=== PATIENT | female | born 1985 | race Caucasian/White ===

== ENCOUNTER 2022-06-20 12:27 | Emergency (ER) | payer MEDICAID, SELFPAY ==
[2022-06-20 12:41] VITALS: BP 110/70; PULSE 86; RESP 14; TEMP 36.8; O2SAT 100; BMI 23.6
--- NOTE | 2022-06-20 12:43 | XRR_ITS ---
PROCEDURE INFORMATION: Exam: XR Chest Exam date and time: 06/20/2022 12:57 PM Age: 36 years old Clinical indication: Right-sided and left-sided; Patient HX: PT C/O chest pain w/history of heart attack one year and 3 months ago ( maker). ; Additional info: Cp TECHNIQUE: Imaging protocol: Radiologic exam of the chest. Views: 1 view. COMPARISON: No relevant prior studies available. FINDINGS: Lungs: Unremarkable. No consolidation. Pleural spaces: Unremarkable. No pleural effusion. No pneumothorax. Heart/Mediastinum: Unremarkable. No cardiomegaly. Bones/joints: Unremarkable. XR/XR chest 1V portable [id number] IMPRESSION: No acute findings.
--- NOTE | 2022-06-20 12:49 | ED_ITS ---
HPI - Chest Pain General: Chief Complaint: Chest Pain Stated Complaint: cp/dizzy Time Seen by Provider: 06/20/22 12:40 History of Present Illness: Patient complains of some chest pain, feeling of dizziness, nausea. Her pain is currently lower epigastric region that radiates into her back and maybe her shoulder. Patient was here at the hospital with her because he is sick . She reports that a proximately a year ago she had similar symptoms and ended up needing a stent due to a blockage. Patient denies any fever. Associated symptoms: Reports nausea; Deny dyspnea, fever(s) or vomiting Review of Systems Const: Denies: fever(s) or chills Card: Reports: chest pain and lightheadedness Resp: Denies: dyspnea GI: Reports: nausea; Denies: vomiting : Denies: flank pain or difficulty voiding Musc: Reports: neck pain and back pain Skin/Breast: Denies: rash Neuro: Denies: headache(s) or numbness in extremities Psych: Denies: anxiety or depression Physical Exam Const: COMMON NORMALS: no acute distress, patient oriented x3 and no limitations Resp: COMMON NORMALS: normal respiratory effort, No retractions and No use of accessory muscles EFFORT & INSPECTION: Yes able to speak in complete sentences Cardio: COMMON NORMALS: regular rate and regular rhythm RATE: regular rate RHYTHM: regular rhythm GI: COMMON NORMALS: Soft to palpation and non-tender PALPATION: Yes Soft to palpation Extremity: COMMON NORMALS: full ROM and capillary refill normal Neuro: COMMON NORMALS: patient oriented x3, CN's II-XII intact bilaterally, moves all extremities, no focal motor deficits and no sensory deficits noted Psych: COMMON NORMALS: mental status grossly normal, Normal thought process present and normal affect THOUGHT PROCESS: Normal thought process present Course Vital Signs: Vital signs: Vital Signs Temperature 98.3 F 06/20/22 12:41 Pulse Rate 88 06/20/22 14:40 Respiratory Rate 19 H 06/20/22 14:40 Blood Pressure 109/66 06/20/22 14:30 Pulse Oximetry 100 06/20/22 14:30 Oxygen Delivery Me thod 06/20/22 14:30 MDM - Chest Pain Medical Decision Making Patient's diagnostic test were ordered analyzed and reviewed by me along with your radiology study was reviewed and read by me initially and then reviewed radiology reading for final interpretation. EKG was interpreted by me. From time patient checked and she was repeatedly asking for pain medication specifically Dilaudid by name. She reports that morphine and Toradol did not work for her patient's was also being seen at the same time. He was had an extensive work-up at his stay he was specifically asking for pain medication with a paper prescription in fact he refused to sign discharge papers since he was not provided a narcotic prescription. Patient is from [place] and was unhappy with their treatment in [place] as why they were here in our ER. I suspect patient was here for drug-seeking behavior and is very concerning for that type of activity. Patient did have a low potassium which we attempted to correct however she left AMA prior to correction. She was quite aware of how to sign an AMA form and I suspect that she has had multiple drug- seeking behavior visits. Patient had no signs of acute coronary syndrome at time of her leaving AMA. She was stable when she left AGAINST MEDICAL ADVICE. Lab Data 06/20/22 12:55 06/20/22 12:55 Radiology Impressions Chest X-Ray 06/20/22 12:43 IMPRESSION: No acute findings. Laboratory Results WBC 9.2 10^3/uL (4.0-10.0) 06/20/22 12:55 RBC 4.44 10^6/uL (4.1-5.3) 06/20/22 12:55 Hgb 12.9 g/dL (11.5-15.3) 06/20/22 12:55 Hct 39.6 % (37.0-47.0) 06/20/22 12:55 MCV 89.2 fl (81-99) 06/20/22 12:55 MCH 29.1 pg (28.0-34.0) 06/20/22 12:55 MCHC 32.6 g/dL (30.0-36.0) 06/20/22 12:55 RDW 14.0 % (12.1-15.1) 06/20/22 12:55 Plt Count 242 10^3/cmm (130-400) 06/20/22 12:55 MPV 10.6 fL (7.4-10.4) H 06/20/22 12:55 Neut % (Auto) 56.1 % 06/20/22 12:55 Lymph % (Auto) 32.1 % 06/20/22 12:55 [place] % (Auto) 8.0 % 06/20/22 12:55 Eos % (Auto) 3.4 % 06/20/22 12:55 Baso % (Auto) 0.2 % 06/20/22 12:55 Neut # (Auto) 5.15 10^3/uL (1.8-7.7) 06/20/22 12:55 Lymph # (Auto) 3.0 10^3/uL (0.8-4.8) 06/20/22 12:55 [place] # (Auto) 0.7 10^3/uL (0.2-0.9) 06/20/22 12:55 Eos # (Auto) 0.3 10^3/uL (0.0-0.8) 06/20/22 12:55 Baso # (Auto) 0.0 10^3/uL (0.0-0.1) 06/20/22 12:55 Nucleated RBC % (auto) 0 % 06/20/22 12:55 Nucleated RBCs # 0.0 /100WBC 06/20/22 12:55 Sodium 135 mmol/L (136-145) L 06/20/22 12:55 Potassium 2.9 mmol/L (3.5-5.1) L 06/20/22 12:55 Chloride 92 mmol/L (98-107) L 06/20/22 12:55 Carbon Dioxide 33 mmol/L (22-29) H 06/20/22 12:55 Anion Gap 12.9 (5-19) 06/20/22 12:55 BUN 9 mg/dL (6-20) 06/20/22 12:55 Creatinine 0.5 mg/dL (0.5-0.9) 06/20/22 12:55 GFR Calculation 139.6 mL/min (90-130) H 06/20/22 12:55 Glucose 93 mg/dL (65-115) 06/20/22 12:55 Calculated Osmolality 278 mOsm/kg (285-295) L 06/20/22 12:55 Calcium 8.8 mg/dL (8.5-10.5) 06/20/22 12:55 Total Bilirubin 0.5 mg/dL (0.15-1.2) 06/20/22 12:55 AST 12 U/L (0-32) 06/20/22 12:55 ALT 9 U/L (0-33) 06/20/22 12:55 Alkaline Phosphatase 115 U/L (35-105) H 06/20/22 12:55 Troponin T Baseline 6 ng/L (0-10) 06/20/22 12:55 NT-Pro-B Natriuret Pep 36 pg/mL (0-125) 06/20/22 12:55 Total Protein 6.4 g/dL (6.6-8.7) L 06/20/22 12:55 Albumin 4.1 g/dL (3.5-5.2) 06/20/22 12:55 Globulin 2.3 g/dL (1.3-4.6) 06/20/22 12:55 Lipase 19 U/L (13-60) 06/20/22 12:55 EKG Data EKG 1: I personally reviewed and interpreted this EKG as follows: EKG interpretation date: 06/20/22 EKG interpretation time: 12:53 Interpretation: Heart rate 79, sinus rhythm. Questionable incomplete bundle branch block. No acute ST changes or elevation noted Discharge Plan Discharge Patient Disposition: Left Against Medical Advice Clinical Impression: Chest pain, Drug-seeking behavior Condition: Stable Prescriptions: No Action verapamil 120 mg tablet extended release 120 mg PO DAILY furosemide 40 mg tablet 40 mg PO DAILY atorvastatin 80 mg tablet 80 mg PO DAILY alprazolam 1 mg tablet 1 mg PO TID PRN (Reason: Anxiety) quetiapine 100 mg tablet 100 mg PO BEDTIME trazodone 100 mg tablet 100 mg PO BEDTIME indomethacin 50 mg capsule 50 mg PO TID PRN (Reason: Pain) gabapentin 300 mg capsule 300 mg PO BID omeprazole 20 mg capsule,delayed release(DR/EC) 20 mg PO DAILY aripiprazole 5 mg tablet 5 mg PO DAILY bupropion HCl 150 mg tablet extended release 24 hr 150 mg PO DAILY quetiapine 50 mg tablet 50 mg PO DAILY prasugrel 10 mg tablet 10 mg PO DAILY aspirin 81 mg Tablet,Chewable 81 mg PO DAILY Discharge Diet: Usual diet Discharge Activity: Resume usual activity Coding Level of Care Code ED Mitochondrial Disorders Counselor for Unruly Maurice
--- NOTE | 2022-06-20 12:52 | ECG_ITS ---
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 Measurements Intervals [place] Rate: 79 P: 45 [place]: 172 QRS: 60 QRSD: 118 T: 31 QT: 421 QTc: 483 Interpretive Statements SINUS RHYTHM POSSIBLE LEFT ATRIAL ENLARGEMENT [-0.1mV P-WAVE IN V1/V2] INCOMPLETE RIGHT BUNDLE BRANCH BLOCK [90+ ms QRS DURATION, TERMINAL R IN V1/V2, 40+ ms S IN I/aVL/V4/V5/V6] NONSPECIFIC T-WAVE ABNORMALITY No previous ECG available for comparison Electronically Signed On 06-20-2022 15:15:44 BOX ANNEALER by Juan Burk M.D. [email or web address] medical [email or web address] ITacmc healthcare system glenbeigh.[employer]/store/OM/[id number]
[2022-06-20 13:09] LABS: Basophils % 0.2 %; Eosinophils # 0.3 10^3/uL (0.0-0.8); Eosinophils % 3.4 %; Hematocrit 39.6 % (37.0-47.0); Hemoglobin 12.9 g/dL (11.5-15.3); Lymphocytes % 32.1 %; Mean Corpuscular HGB Conc 32.6 g/dL (30.0-36.0); Mean Corpuscular Hemoglobin 29.1 pg (28.0-34.0); Mean Corpuscular Volume 89.2 fl (81-99); Mean Platelet Volume 10.6 fL (7.4-10.4); Monocytes # 0.7 10^3/uL (0.2-0.9); Neutrophils # 5.15 10^3/uL (1.8-7.7); Neutrophils % 56.1 %; Nucleated Red Blood Cells % 0 %; Platelet Count 242 10^3/cmm (130-400); Red Blood Count 4.44 10^6/uL (4.1-5.3); White Blood Count 9.2 10^3/uL (4.0-10.0)
[2022-06-20 13:12] VITALS: RESP 18
[2022-06-20] MEDS: ondansetron 2 mg/ML SDV 2 mL 4 MG IVP (13:12)
[2022-06-20] MEDS: fentaNYL 50 mcg/mL INJ 2mL IVP (13:12)
[2022-06-20] MEDS: aspirin 81 mg Chew Tablet 324 MG PO (13:12)
[2022-06-20 13:44] LABS: Troponin(5th) Baseline 6 ng/L (0-10)
[2022-06-20 13:50] LABS: Alanine Aminotransferase 9 U/L (0-33); Albumin Level 4.1 g/dL (3.5-5.2); Alkaline Phosphatase 115 U/L (35-105); Anion Gap 12.9 (5-19); Aspartate Amino Transferase 12 U/L (0-32); Blood Urea Nitrogen 9 mg/dL (6-20); Calcium 8.8 mg/dL (8.5-10.5); Carbon Dioxide 33 mmol/L (22-29); Chloride 92 mmol/L (98-107); Globulin 2.3 g/dL (1.3-4.6); Glomerular Filtration Rate 139.6 mL/min (90-130); Glucose 93 mg/dL (65-115); Lipase 19 U/L (13-60); NT Pro B Type Natriuretic Pept 36 pg/mL (0-125); Osmolality Calculated 278 mOsm/kg (285-295); Sodium 135 mmol/L (136-145); Total Bilirubin 0.5 mg/dL (0.15-1.2); Total Protein 6.4 g/dL (6.6-8.7)
[2022-06-20 14:14] LABS: Potassium 2.9 mmol/L (3.5-5.1)
[2022-06-20 14:27] VITALS: BP 109/66; PULSE 68; RESP 16; O2SAT 98
[2022-06-20 14:30] VITALS: BP 109/66; PULSE 72; RESP 15; O2SAT 100
[2022-06-20 14:35] VITALS: PULSE 73; RESP 19
[2022-06-20 14:40] VITALS: PULSE 88; RESP 19
--- NOTE | 2022-06-20 14:52 | ECG_ITS ---
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 Measurements Intervals [place] Rate: 80 P: 45 [place]: 199 QRS: 57 QRSD: 122 T: 21 QT: 422 QTc: 487 Interpretive Statements SINUS RHYTHM POSSIBLE RIGHT VENTRICULAR CONDUCTION DELAY [RSR (QR) IN V1/V2] NONSPECIFIC T-WAVE ABNORMALITY Compared to ECG 06/20/2022 12:52:26 Incomplete right bundle-branch block no longer present T-wave abnormality still present Electronically Signed On 06-20-2022 15:17:17 HAND INSPECTOR by Juan Burk M.D. [email or web address] Holdingsummc holmes countyRisk I/[facility].[employer]/store/OM/[id number]
--- NOTE | 2022-06-20 15:22 | PC.NURSE ---
PT LABS CAME BACK WITH A CRITICALLY LOW POTASSIUM. NOTIFIED AND ORDERED IV AND PO POTASSIUM. WHILE WALKING TO PT ROOM TO GIVE THE MEDS, DANISHA PINK STATED THAT THE PT WAS REFUSING FURTHER TX AND WANTS TO LEAVE. WHEN TALKING TO PT AND DR AND EXPLAINING THE RISKS OF REFUSING TX, PT STILL WANTED TO LEAVE. AMA WAIVER SIGNED BY PT AND NURSE. PT STABLE UPON EXITING THE DEPARTMENT.
== END 2022-06-20 15:15 | disposition left against medical advice (07) ==
PROVIDERS: Emergency Provider Student in an Organized Health Care Education/Training Program
DX: R07.9 Chest pain, unspecified (principal); Z76.5 Malingerer [conscious simulation]; Z53.21 Procedure and treatment not carried out due to patient leaving prior to being seen by health care provider; Z79.82 Long term (current) use of aspirin
CPT/HCPCS: 71045; 80053; 83690; 83880; 84484; 85025; 93005; 96374; 96375; 99285; J2405; J3010

== ENCOUNTER 2022-07-12 16:28 | Observation (INO) | payer MEDICAID, SELFPAY ==
[2022-07-12] VITALS (10 sets, daily range): BP systolic 95–160; BP diastolic 62–75; PULSE 73–83; RESP 15–21; TEMP 36.6–37.1; O2SAT 93–100; BMI 25.0
--- NOTE | 2022-07-12 16:35 | ECG_ITS ---
[facility] Test Date: 2022-07-12 Pat Name: Alyssa Moran Department: Room: Gender: Female Abstract Checker: : 1985 Requested By: Bonnie Gunderson Order Number: [id number] Patricia MD: Rober Weber M.D. Measurements Intervals [place] Rate: 81 P: 61 [place]: 168 QRS: 61 QRSD: 116 T: 56 QT: 412 QTc: 480 Interpretive Statements SINUS RHYTHM INCOMPLETE RIGHT BUNDLE BRANCH BLOCK [90+ ms QRS DURATION, TERMINAL R IN V1/V2, 40+ ms S IN I/aVL/V4/V5/V6] NONSPECIFIC T-WAVE ABNORMALITY INTERPRETATION BASED ON A DEFAULT AGE OF 40 YEARS Compared to ECG 06/20/2022 14:52:36 Incomplete right bundle-branch block now present T-wave abnormality still present Electronically Signed On 07-13-2022 23:05:34 CDT by Rober Weber M.D. [email or web address] north hospital.Penana/store/NU/[id number]
--- NOTE | 2022-07-12 16:38 | XRR_ITS ---
PROCEDURE INFORMATION: Exam: XR Chest Exam date and time: 07/12/2022 4:49 PM Age: 36 years old Clinical indication: Pain; Angina pectoris; Additional info: Chest pain TECHNIQUE: Imaging protocol: Radiologic exam of the chest. Views: 1 view. COMPARISON: CR (CHEST, ) 06/20/2022 12:57 PM FINDINGS: Lungs: The lungs are clear. Pleural spaces: Unremarkable. No pleural effusion. No pneumothorax. Heart/Mediastinum: The heart is normal in size. Left coronary, possibly circumflex, calcifications are again noted. Bones/joints: Unremarkable. XR/XR chest 1V portable [id number] IMPRESSION: 1. No acute pulmonary abnormality. 2. Coronary artery disease.
--- NOTE | 2022-07-12 16:46 | ED_ITS ---
HPI - Chest Pain General: Chief Complaint: Chest Pain Stated Complaint: chest pain/down back Time Seen by Provider: 07/12/22 16:46 History of Present Illness: Ms. Moran is a 36-year-old lady with history of FL with stent placement presenting to the emergency department for chest pain. She reports since stent placement 1 year ago occasional chest pain however this has become more frequent and more intense lately. Today while shopping she had onset of severe chest heaviness with pain between her shoulder blades rating down the arms. She also notes shortness of breath and nausea. Intensity symptoms is moderate to severe. Course has persisted. She reports compliance with her medication regimen. No other specific changes in health, exacerbating, or alleviating factors identified. LAD stent placed in [place] Onset (ago): minute(s) Timing of current episode: constant Prior episodes: Yes Onset: during exertion Pain location: substernal Pain radiation: right arm, left arm and back Severity: moderate Quality: aching and heaviness Relieving factors: nitroglycerin Exacerbating factors: nothing Associated symptoms: Reports dyspnea and nausea Treatment prior to arrival: nitroglycerin Review of Systems General: Reports: 10 or more systems reviewed and unremarkable except in HPI and below Resp: Reports: dyspnea GI: Reports: nausea PFSH ED PFSH: Medical History CAD (coronary artery disease) Frequent PVCs Surgical History History of percutaneous coronary intervention Social History Smoking and tobacco status: current every day smoker Physical Exam Const: COMMON NORMALS: alert GENERAL APPEARANCE: cooperative and well developed HENMT: COMMON NORMALS: normocephalic and atraumatic HEAD & SCALP: normocephalic and atraumatic Eye: COMMON NORMALS: conjunctivae normal CONJUNCTIVA: Yes conjunctivae normal SCLERA: sclerae normal Neck/C-Spine: COMMON NORMALS: supple GENERAL: Yes trachea midline Resp: COMMON NORMALS: clear to auscultation bilaterally EFFORT & INSPECTION: Yes able to speak in complete sentences AUSCULTATION: clear to auscultation bilaterally Cardio: COMMON NORMALS: regular rate and regular rhythm RATE: regular rate RHYTHM: regular rhythm GI: COMMON NORMALS: Soft to palpation PALPATION: Yes Soft to palpation and No Tenderness to palpation present (GI) Extremity: GENERAL: Yes normal exam except as noted and No edema Neuro: COMMON NORMALS: moves all extremities SENSORIUM/ORIENTATION: Yes alert and No Orientation impaired Psych: COMMON NORMALS: mental status grossly normal and Normal thought process present THOUGHT PROCESS: Normal thought process present Course Vital Signs: Vital signs: Vital Signs Temperature 98.4 F 07/13/22 04:00 Pulse Rate 87 07/13/22 07:10 Respiratory Rate 16 07/13/22 07:10 Blood Pressure 89/57 07/13/22 07:10 Pulse Oximetry 97 07/13/22 07:10 Oxygen Delivery Me thod 07/13/22 07:10 MDM - Chest Pain Medical Decision Making 36-year-old lady with history of FL presenting to the emergency department due to chest pain. Pain is fairly typical in nature and concerning for cardiac e tiology. Exam as above. Patient is nontoxic. EKG notable for sinus rhythm with normal axis and intervals, incomplete right bundle branch block, nonspecific ST segment abnormalities, no STEMI. No significant hematologic abnormality, metabolic panel with hypokalemia. Negative initial and repeat troponin. No UTI Chest x-ray negative for acute pathology. On reassessment patient has significant pain despite continued treatment, therefore advanced imaging is appropriate. CT without clear etiology of patient's symptoms. During ED course patient treated with aspirin, antiemetic, analgesia, potassium replenishment, IV fluids. She had moderate transient relief though return of symptoms concerning for unstable angina. The results of ED evaluation were discussed with the patient including plan for admission due to requirement for level of care not available if discharged to prevent significant worsening/deterioration. Patient agreeable with plan. Discussed with hospitalist service who was agreeable to admit patient. Medical Records I reviewed the patient's medical records. Lab Data I reviewed the patient's lab results. 07/12/22 17:15 07/12/22 17:15 Radiology Impressions Chest X-Ray 07/12/22 16:38 IMPRESSION: 1. No acute pulmonary abnormality. 2. Coronary artery disease. Chest/Abdomen/Pelvis CTA 07/12/22 21:15 IMPRESSION: 1. Mild atherosclerotic changes in the thoracic and abdominal aorta. No intramural hematoma, dissection or aneurysm. 2. Constipation. 3. No acute cardiopulmonary abnormality. Laboratory Results WBC 9.1 10^3/uL (4.0-10.0) 07/12/22 17:15 RBC 4.67 10^6/uL (4.1-5.3) 07/12/22 17:15 Hgb 13.7 g/dL (11.5-15.3) 07/12/22 17:15 Hct 42.6 % (37.0-47.0) 07/12/22 17:15 MCV 91.2 fl (81-99) 07/12/22 17:15 MCH 29.3 pg (28.0-34.0) 07/12/22 17:15 MCHC 32.2 g/dL (30.0-36.0) 07/12/22 17:15 RDW 13.7 % (12.1-15.1) 07/12/22 17:15 Plt Count 229 10^3/cmm (130-400) 07/12/22 17:15 MPV 10.7 fL (7.4-10.4) H 07/12/22 17:15 Neut % (Auto) 58.4 % 07/12/22 17:15 Lymph % (Auto) 33.9 % 07/12/22 17:15 [place] % (Auto) 4.9 % 07/12/22 17:15 Eos % (Auto) 2.2 % 07/12/22 17:15 Baso % (Auto) 0.4 % 07/12/22 17:15 Neut # (Auto) 5.28 10^3/uL (1.8-7.7) 07/12/22 17:15 Lymph # (Auto) 3.1 10^3/uL (0.8-4.8) 07/12/22 17:15 [place] # (Auto) 0.4 10^3/uL (0.2-0.9) 07/12/22 17:15 Eos # (Auto) 0.2 10^3/uL (0.0-0.8) 07/12/22 17:15 Baso # (Auto) 0.0 10^3/uL (0.0-0.1) 07/12/22 17:15 Nucleated RBC % (auto) 0 % 07/12/22 17:15 Nucleated RBCs # 0.0 /100WBC 07/12/22 17:15 D-Dimer 0.45 ug/mIFEU (0-0.59) 07/12/22 17:15 Sodium 139 mmol/L (136-145) 07/12/22 17:15 Potassium 3.0 mmol/L (3.5-5.1) L 07/12/22 17:15 Chloride 97 mmol/L (98-107) L 07/12/22 17:15 Carbon Dioxide 28 mmol/L (22-29) 07/12/22 17:15 Anion Gap 17.0 (5-19) 07/12/22 17:15 BUN 7 mg/dL (6-20) 07/12/22 17:15 Creatinine 0.7 mg/dL (0.5-0.9) 07/12/22 17:15 GFR Calculation 94.7 mL/min (90-130) 07/12/22 17:15 Glucose 83 mg/dL (65-115) 07/12/22 17:15 Calculated Osmolality 285 mOsm/kg (285-295) 07/12/22 17:15 Calcium 8.6 mg/dL (8.5-10.5) 07/12/22 17:15 Total Bilirubin 0.2 mg/dL (0.15-1.2) 07/12/22 17:15 AST 10 U/L (0-32) 07/12/22 17:15 ALT 8 U/L (0-33) 07/12/22 17:15 Alkaline Phosphatase 114 U/L (35-105) H 07/12/22 17:15 Troponin T Baseline 6 ng/L (0-10) 07/12/22 17:15 Troponin T 120 Minute 6.00 ng/L (0-10) 07/12/22 18:44 Delta Troponin T 0 ABS# (0-10) 07/12/22 18:44 Total Protein 8.0 g/dL (6.6-8.7) 07/12/22 17:15 Albumin 4.9 g/dL (3.5-5.2) 07/12/22 17:15 Globulin 3.1 g/dL (1.3-4.6) 07/12/22 17:15 Lipase 18 U/L (13-60) 07/12/22 16:38 HCG, Qual Cancelled 07/12/22 17:49 Urine Color Yellow (Yellow) 07/12/22 17:49 Urine Appearance Clear (CLEAR) 07/12/22 17:49 Urine pH 6 (5-7) 07/12/22 17:49 Ur Specific [place] 1.015 (1.005-1.030) 07/12/22 17:49 Urine Protein Neg (Negative) 07/12/22 17:49 Urine Glucose (UA) Norm (Normal) 07/12/22 17:49 Urine Ketones Negative (Negative) 07/12/22 17:49 Urine Blood Neg (Negative) 07/12/22 17:49 Urine Nitrate Negative (Negative) 07/12/22 17:49 Urine Bilirubin Neg (Negative) 07/12/22 17:49 Urine Urobilinogen 4 mg/dL (Negative) H 07/12/22 17:49 Ur Leukocyte Esterase Negative (Negative) 07/12/22 17:49 Urine Opiates Screen Negative ng/mL (Negative) 07/12/22 17:49 Ur Barbiturates Screen Negative ng/mL (Negative) 07/12/22 17:49 Ur Phencyclidine Scrn Negative ng/mL (Negative) 07/12/22 17:49 Ur Amphetamines Screen Negative ng/mL (Negative) 07/12/22 17:49 U Benzodiazepines Scrn Negative ng/mL (Negative) 07/12/22 17:49 Urine Cocaine Screen Negative ng/mL (Negative) 07/12/22 17:49 U Marijuana (THC) Screen Negative ng/mL (Negative) 07/12/22 17:49 Discharge Plan Discharge Patient Disposition: Placed in Observation Admit Provider: Greg Restrepo Clinical Impression: Chest pain, History of FL (myocardial infarction), History of coronary angioplasty Coding Level of Care Code ED Microbiology Lab Analyst for Unruly Maurice
[2022-07-12] MEDS: HYDROmorphone 1 mg/mL INJ 1 mL 0.5 MG IVP (17:29)
[2022-07-12] MEDS: ondansetron 2 mg/ML SDV 2 mL 4 MG IVP ×2 (17:30→19:10)
[2022-07-12] MEDS: aspirin 81 mg Chew Tablet 324 MG PO (17:30)
[2022-07-12 17:36] LABS: Basophils % 0.4 %; Eosinophils # 0.2 10^3/uL (0.0-0.8); Eosinophils % 2.2 %; Hematocrit 42.6 % (37.0-47.0); Hemoglobin 13.7 g/dL (11.5-15.3); Lymphocytes # 3.1 10^3/uL (0.8-4.8); Lymphocytes % 33.9 %; Mean Corpuscular HGB Conc 32.2 g/dL (30.0-36.0); Mean Corpuscular Hemoglobin 29.3 pg (28.0-34.0); Mean Corpuscular Volume 91.2 fl (81-99); Mean Platelet Volume 10.7 fL (7.4-10.4); Monocytes # 0.4 10^3/uL (0.2-0.9); Monocytes % 4.9 %; Neutrophils # 5.28 10^3/uL (1.8-7.7); Neutrophils % 58.4 %; Nucleated Red Blood Cells % 0 %; Platelet Count 229 10^3/cmm (130-400); Red Blood Count 4.67 10^6/uL (4.1-5.3); Red Cell Distribution Width 13.7 % (12.1-15.1); White Blood Count 9.1 10^3/uL (4.0-10.0)
[2022-07-12 17:51] LABS: Troponin(5th) Baseline 6 ng/L (0-10)
[2022-07-12 17:53] LABS: Alanine Aminotransferase 8 U/L (0-33); Albumin Level 4.9 g/dL (3.5-5.2); Alkaline Phosphatase 114 U/L (35-105); Aspartate Amino Transferase 10 U/L (0-32); Blood Urea Nitrogen 7 mg/dL (6-20); Calcium 8.6 mg/dL (8.5-10.5); Carbon Dioxide 28 mmol/L (22-29); Chloride 97 mmol/L (98-107); Globulin 3.1 g/dL (1.3-4.6); Glomerular Filtration Rate 94.7 mL/min (90-130); Glucose 83 mg/dL (65-115); Osmolality Calculated 285 mOsm/kg (285-295); Sodium 139 mmol/L (136-145); Total Bilirubin 0.2 mg/dL (0.15-1.2)
[2022-07-12 17:55] LABS: HCG, Serum Qual Negative (Negative)
[2022-07-12] MEDS: potassium chloride ER 20 mEq Tablet 40 MEQ PO (18:25)
[2022-07-12] MEDS: nitroglycerin 0.4 mg sublingual Tablet SUBLINGUAL ×2 (18:28→20:21)
[2022-07-12] MEDS: lidocaine 2% viscous 15 ML, aluminum-mag hydrox-simethicon 30 ML, sucralfate oral liq 1 GM PO (18:28)
[2022-07-12] MEDS: sodium chloride 0.9% 1,000 ML 999 ML IV (18:29)
--- NOTE | 2022-07-12 18:37 | ECG_ITS ---
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 Measurements Intervals [place] Rate: 73 P: 56 [place]: 180 QRS: 56 QRSD: 113 T: 34 QT: 434 QTc: 478 Interpretive Statements SINUS RHYTHM INCOMPLETE RIGHT BUNDLE BRANCH BLOCK [90+ ms QRS DURATION, TERMINAL R IN V1/V2, 40+ ms S IN I/aVL/V4/V5/V6] Compared to ECG 07/12/2022 16:35:55 T-wave abnormality no longer present Electronically Signed On 07-13-2022 23:13:42 CDT by Rober Weber M.D. [id number]
[2022-07-12] MEDS: fentaNYL 50 mcg/mL INJ 2mL IVP ×2 (19:10→20:17)
[2022-07-12 19:13] LABS: Add Urine Microscopic? NO; Charge for UA Resulting for Rev
[2022-07-12 19:18] LABS: Bilirubin Urine Neg (Negative); Blood Urine Neg (Negative); Glucose Urine UA Norm (Normal); Ketones Urine Negative (Negative); Leukocyte Esterase Urine Negative (Negative); Nitrate Urine Negative (Negative); Protein Urine Neg (Negative); Specific Gravity, Urine 1.015 (1.005-1.030); Urine Appearance Clear (CLEAR); Urine Color Yellow (Yellow); Urobilinogen Urine 4 mg/dL (Negative); pH Urine 6 (5-7)
[2022-07-12 19:23] LABS: Troponin 5 2HR Delta 0 ABS# (0-10)
[2022-07-12 19:35] LABS: D Dimer 0.45 ug/mIFEU (0-0.59)
[2022-07-12 19:46] LABS: Lipase 18 U/L (13-60)
[2022-07-12] MEDS: metoclopramide 5 mg/mL SDV 2 mL 10 MG IVP (20:13)
[2022-07-12] MEDS: promethazine 25 mg/mL SDV 1 mL IM (21:02)
[2022-07-12] MEDS: sodium chloride 0.9% 500 ML 999 ML IV (21:06)
--- NOTE | 2022-07-12 21:15 | CTR_ITS ---
PROCEDURE INFORMATION: Exam: CTA Chest Without And With Contrast CTA Abdomen and Pelvis With Contrast Exam date and time: 07/12/2022 9:25 PM Age: 36 years old Clinical indication: Other: Chest pain radiating to back; Prior surgery; Surgery date: 6+ months; Surgery type: C section, gb; Additional info: Chest pain/back pain, eval dissection TECHNIQUE: Imaging protocol: Computed tomographic angiography of the chest without and with contrast. Computed tomographic angiography of the abdomen and pelvis with contrast. 3D rendering (Not supervised by radiologist): MIP and/or 3D reconstructed images were created by the technologist. Radiation optimization: All CT scans at this facility use at least one of these dose optimization techniques: automated exposure control; mA and/or kV adjustment per patient size (includes targeted exams where dose is matched to clinical indication); or iterative reconstruction. Contrast material: OMNI 350; Contrast volume: 100 ml; Contrast route: INTRAVENOUS (IV); REPORTING DATA: Count of CT and Cardiac NM exams in prior 12 months: This patient has received 0 known CTs and 0 known cardiac nuclear medicine studies in the 12 months prior to the current study. COMPARISON: CR XR chest 1V portable [id number] 07/12/2022 4:49 PM RADIATION DOSE METRICS: Total DLP (mGy-cm): 1005.5 FINDINGS: VASCULATURE: Pulmonary arteries: Normal. No pulmonary emboli. Aorta: Mild noncalcified atherosclerotic plaque deposition is seen in the descending thoracic and abdominal aorta. No intramural hematoma, dissection or aneurysm. Celiac trunk and mesenteric arteries: No occlusion or significant stenosis. Renal arteries: Bilateral renal arteries appear normal. Bilateral accessory renal arteries are noted. Right iliac arteries: No occlusion or significant stenosis. Left iliac arteries: No occlusion or significant stenosis. CHEST: Lungs: Subsegmental atelectasis versus mild scarring is seen in the lingula and right middle lobe. The lungs are otherwise clear. Pleural spaces: Unremarkable. No pneumothorax. No pleural effusion. Heart: The heart is normal in size. LAD coronary artery stent is noted. ABDOMEN AND PELVIS: Liver: No mass. Gallbladder and bile ducts: The gallbladder has been removed. No biliary ductal dilatation. Pancreas: Unremarkable. No mass. No ductal dilation. Spleen: Unremarkable. No splenomegaly. Adrenal glands: Unremarkable. No mass. Kidneys and ureters: Unremarkable. No solid mass. No hydronephrosis. Stomach and bowel: A large amount of stool is present in the colon. No intestinal obstruction. Appendix: The appendix is normal. Intraperitoneal space: Unremarkable. No free air. No significant fluid collection. Urinary bladder: Unremarkable. No mass. Reproductive: The uterus and ovaries appear normal. Lymph nodes: Unremarkable. No enlarged lymph nodes. Bones/joints: Moderate to severe degenerative changes are present at L5-S1. No acute fracture. Soft tissues: Unremarkable. CT/CT [facility] [id number] IMPRESSION: 1. Mild atherosclerotic changes in the thoracic and abdominal aorta. No intramural hematoma, dissection or aneurysm. 2. Constipation. 3. No acute cardiopulmonary abnormality.
[2022-07-12] MEDS: iohexol 350 mg/mL 500 mL Btl (per mL) IV (21:25)
--- NOTE | 2022-07-12 22:09 | P.HP_ITS ---
Providers/Chief Complaint Admitting Physician: Greg Restrepo Chief Complaint: chest pain/down back History of Present Illness 36-year-old lady with history of coronary disease, NSTEMI resulting in LAD stent about a year ago, on aspirin, prasugrel, smoking history, hypertension and very frequent PVCs, on verapamil, recently has also been having swelling in her legs for which she takes Lasix, reports also chronically soft blood pressure which she states does not come down further with pain medications, came in for evaluation to ER due to experiencing chest pain/pressure, radiating to the upper central back and nausea. She feels it is very similar to her symptoms with prior heart attack. So far only partial improvement with nitroglycerin and fentanyl, then Dilaudid in ER. At the moment states still pain 11/01. States that fentanyl did not really work for her, requests for Dilaudid. First and 2-hour troponins normal in ER. D-dimer unremarkable. Chest x-ray with coronary artery disease, no acute pulmonary abnormality. Review of Systems Const: Denies: fever(s), chills, body aches or malaise Eyes: Denies: change in vision, eye discomfort or eye redness ENMT: Denies: throat pain, oral sores or ear or mastoid pain Card: Reports: chest pain and swelling of feet/ankles; Denies: edema or pre-syncope Resp: Denies: dyspnea, productive cough, change in phlegm color or hemoptysis GI: Reports: nausea; Denies: abdominal pain, vomiting, diarrhea, constipation, hematochezia or melena : Denies: flank pain, urinary frequency or hematuria Musc: Denies: back pain, joint swelling or joint redness Skin/Breast: Denies: rash or new lesions Neuro: Denies: headache(s), numbness in extremities, weakness in extremities, dizziness, confusion or seizure-like activity Endo: Denies: polyuria or polydipsia Gregg/Lymph: Denies: easy bleeding or tender lymph nodes All/Imm: Denies: urticaria or tongue swelling Medications/Allergies Home Medications Medication Instructions Recorded Confirmed Last Taken Type alprazolam 1 mg tablet 1 mg PO TID PRN Anxiety 06/20/22 07/12/22 07/11/22 History aripiprazole 5 mg tablet 5 mg PO DAILY 0206/20/22 06/20/22 History aspirin 81 mg chewable tablet 81 mg PO DAILY 06/20/22 06/20/22 06/20/22 History atorvastatin 80 mg tablet 80 mg PO DAILY 06/20/22 06/20/22 06/19/22 History bupropion HCl 150 mg 24 hr tablet, 150 mg PO DAILY 06/20/22 06/20/22 06/19/22 History extended release furosemide 40 mg tablet 40 mg PO DAILY 06/20/22 06/20/22 06/20/22 History gabapentin 300 mg capsule 300 mg PO BID 06/20/22 06/20/22 06/19/22 History omeprazole 20 mg capsule,delayed 20 mg PO DAILY 06/20/22 06/20/22 06/20/22 History release prasugrel 10 mg tablet 10 mg PO DAILY 06/20/22 06/20/22 06/20/22 History quetiapine 100 mg tablet 100 mg PO BEDTIME 06/20/22 06/20/22 06/19/22 History quetiapine 50 mg tablet 50 mg PO DAILY 06/20/22 06/20/22 06/20/22 History trazodone 100 mg tablet 100 mg PO BEDTIME 06/20/22 06/20/22 06/19/22 History verapamil 120 mg tablet,extended 120 mg PO DAILY 06/20/22 06/20/22 06/20/22 History release Allergies Allergy/AdvReac Type Severity Reaction Status Date / Time Sulfa (Sulfonamide Allergy Unknown Unknown Verified 06/20/22 14:45 Antibiotics) PFSH Acute PFSH: Medical History CAD (coronary artery disease) Frequent PVCs Surgical History History of percutaneous coronary intervention Social History Smoking and tobacco status: current every day smoker Female Reproductive History: Date of last menstrual period: 07/12/22 Vitals/I&O/Wt Last Vital Signs Temp 98.5 F 07/12/22 22:00 Pulse 73 07/12/22 22:00 Resp 18 07/12/22 22:00 BP 106/71 07/12/22 22:00 Pulse Ox 96 07/12/22 22:00 O2 Del Method 07/12/22 22:00 07/12/22 07/12/22 07/12/22 06:59 14:59 22:59 Output Total 200 / 200 Balance -200 / -200 Weight last 48 hrs Weight 74.843 kg Physical Exam Const: COMMON NORMALS: patient oriented x3 and alert GENERAL APPEARANCE: cooperative ORIENTATION/CONSCIOUSNESS: Yes awake HENMT: COMMON NORMALS: oropharynx normal Neck/C-Spine: COMMON NORMALS: no JVD Resp: COMMON NORMALS: normal respiratory effort and clear to auscultation bilaterally AUSCULTATION: clear to auscultation bilaterally Cardio: COMMON NORMALS: no JVD, regular rhythm, S1 normal heart sound present, S2 normal heart sound present and No murmurs present (Cardio) RHYTHM: regular rhythm HEART SOUNDS: S1 normal heart sound present and S2 normal heart sound present GI: COMMON NORMALS: Normal to inspection, nondistended, normoactive bowel s ounds present, Soft to palpation and non-tender PALPATION: Yes Soft to pa lpation Extremity: COMMON NORMALS: no joint enlargement GENERAL: Yes edema Neuro: COMMON NORMALS: patient oriented x3 and moves all extremities SENSOR IUM/ORIENTATION: Yes alert Skin: COMMON NORMALS: no rashes or lesions noted GENERAL SKIN EXAM: no rashes or lesions noted Data 07/12/22 17:15 07/12/22 17:15 A&P Assessment and plan (1) Chest pain: Pain, pressure in the chest, radiating to the upper back. Nausea. Troponin x2 noted normal so far. EKG with RSR prime, nonspecific T wave changes/flattening on my interpretation. D-dimer noted unremarkable. Requested CT angiogram to assess for dissection, no dissection. Atherosclerotic changes thoracic and abdominal aorta. No intramural hematoma dissection or aneurysm. Constipation. Initial consideration for further assessment of stress testing, however, persistent symptoms, possible unstable angina, nitro drip (although discussed with her may be limited by her blood pressure which is soft), discussed with cardiology, keep n.p.o. with consideration of possible angiographic evaluation. Heparin drip with PTT monitoring. Close monitoring of blood pressures with nitroglycerin drip on CSU, cardiac monitoring. Assess TTE. Continue aspirin, prasugrel, statin, not on beta-ryan, however, blood pressure soft, currently requiring nitro drip, also on verapamil. Add beta- ryan at some point if possible. Additionally requiring IV Dilaudid as needed for pain. Zofran as needed for nausea. Discussed with ER physician, ER documentation reviewed. Discussed cardiology. (2) Leg edema: Leg edema which she has difficulty keeping down even with 40 mg of Lasix daily, although does not appear to be in decompensated CHF otherwise. Says that she has been told in the past she may have some CHF but not detected will kill her , which we are not sure what that means. Additional assessment by TTE as above. Note looks like she is also on verapamil which may contribute to lower extremity edema. (3) History of NC (myocardial infarction): (4) History of coronary angioplasty: With stenting of LAD. (5) CAD (coronary artery disease): (6) Hypokalemia: Received replacement. Recheck chemistry requested. Check magnesium. (7) Low blood pressure: Plan Possible component of pain seeking reported during prior visit to ER 06/20/2022. History of frequent PVCs: On verapamil Attestations Medical Necessity Statement*: Place in observation for additional assessment management of unstable angina. Diagnoses Chest pain R07.9 Leg edema R60.0 History of NC (myocardial infarction) I25.2 History of coronary angioplasty Z98.61 CAD (coronary artery disease) I25.10 Hypokalemia E87.6 Low blood pressure I95.9
[2022-07-12] MEDS: ALPRAZolam 0.5 mg Tablet 1 MG PO (22:44)
[2022-07-12] MEDS: pantoprazole 40 mg SDV IVP (22:45)
[2022-07-12] MEDS: trazodone 100 mg Tablet PO (22:45)
[2022-07-12] MEDS: quetiapine 100 mg Tablet PO (22:45)
[2022-07-12] MEDS: heparin 5,000 unit/mL INJ 1 mL IV (22:56)
[2022-07-12] MEDS: heparin drip 25,000 UNIT/500 ML PREMIX 31.43 UNIT IV (22:57)
--- NOTE | 2022-07-12 23:07 | PC.NURSE ---
Patient c/o headache related to nitro SL and is questioning the nitro drip. Spoke with Dr Restrepo and received ok to hold nitro drip for now.
--- NOTE | 2022-07-12 23:23 | ECG_ITS ---
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 Measurements Intervals Chambers Rate: 77 P: 71 UT: 171 QRS: 53 QRSD: 120 T: 15 QT: 449 QTc: 510 Interpretive Statements SINUS RHYTHM POSSIBLE RIGHT VENTRICULAR CONDUCTION DELAY [RSR (QR) IN V1/V2] POSSIBLE INFERIOR MYOCARDIAL INFARCTION , PROBABLY OLD [30 ms Q WAVE IN II/aVF] Compared to ECG 07/12/2022 18:39:41 Myocardial infarct finding now present Incomplete right bundle-branch block no longer present Electronically Signed On 07-13-2022 23:14:46 CDT by Rober Weber M.D. [id number]
[2022-07-13 00:09] LABS: Troponin 5 6HR Delta 0 ng/L (0-12)
[2022-07-13 00:24] VITALS: RESP 14
[2022-07-13] MEDS: HYDROmorphone 1 mg/mL INJ 1 mL 0.5 MG IVP (00:24)
[2022-07-13 00:50] LABS: Amphetamines Screen Urine Negative (Negative); Barbiturates Screen Urine Negative (Negative); Benzodiazepines Screen Urine Negative (Negative); Cocaine Screen Urine Negative (Negative); Opiate Screen Urine Negative (Negative); PCP Screen Urine Negative (Negative); THC Screen Urine Negative (Negative)
[2022-07-13 04:00] VITALS: BP 89/52; PULSE 77; RESP 12; TEMP 36.9; O2SAT 94
[2022-07-13 04:54] LABS: Basophils % 0.4 %; Eosinophils # 0.3 10^3/uL (0.0-0.8); Eosinophils % 3.8 %; Hematocrit 34.7 % (37.0-47.0); Hemoglobin 10.9 g/dL (11.5-15.3); Lymphocytes # 3.9 10^3/uL (0.8-4.8); Lymphocytes % 49.2 %; Mean Corpuscular HGB Conc 31.4 g/dL (30.0-36.0); Mean Corpuscular Hemoglobin 29.2 pg (28.0-34.0); Monocytes # 0.5 10^3/uL (0.2-0.9); Monocytes % 6.2 %; Neutrophils # 3.19 10^3/uL (1.8-7.7); Neutrophils % 40.3 %; Nucleated Red Blood Cells % 0 %; Platelet Count 169 10^3/cmm (130-400); Red Blood Count 3.73 10^6/uL (4.1-5.3); Red Cell Distribution Width 13.7 % (12.1-15.1); White Blood Count 7.9 10^3/uL (4.0-10.0)
[2022-07-13 05:01] LABS: Partial Thromboplastin Time 60.3 SECONDS (23.9-36.7)
[2022-07-13 05:12] LABS: Blood Urea Nitrogen 6 mg/dL (6-20); Calcium 7.6 mg/dL (8.5-10.5); Carbon Dioxide 26 mmol/L (22-29); Chloride 107 mmol/L (98-107); Glomerular Filtration Rate 113.1 mL/min (90-130); Glucose 89 mg/dL (65-115); Magnesium 2.1 mg/dL (1.7-2.3); Osmolality Calculated 287 mOsm/kg (285-295); Sodium 140 mmol/L (136-145)
[2022-07-13 05:15] LABS: Anion Gap 10.5 (5-19); Potassium 3.5 mmol/L (3.5-5.1)
[2022-07-13 05:43] VITALS: PULSE 79
--- NOTE | 2022-07-13 07:05 | PM.CONSULT ---
Providers/Reason For Consult Consulting Physician/Specialty*: NICOLE Weber MD/cardiology Reason for Consult*: Patient with a history of coronary artery disease, presenting with increasing chest pains Requesting Physician: Dr. Restrepo Attending Physician: Greg Restrepo History of Present Illness History of Present Illness Alyssa Moran is a 36 year old female with a history of coronary disease, status post PCI, is present with complaints of chest pain. According the patient, she been shopping around yesterday and [place]. She started having the chest pain all of a sudden in the nape of the neck. The pain was radiating to both shoulders and then to the front of the chest. Intensity was around 7/10. The pain started getting worse. For this reason, her drove her to our emergency room. The chest pain has been waxing and waning since then. She took 2 sublingual nitro before coming to the emergency room. Apparently that did not help the symptoms. In the emergency room, she was given sublingual nitro, fentanyl, Dilaudid and other symptomatic measures. Apparently she never had any complete relief of symptoms. However the intensity of the pain came down. This morning, the pain was around a 2/10 in intensity. As I walked into the room, the pain was again coming back and became 6-7/10. According the patient, she had a myocardial infarction a year ago at the hospital emergency room in [place]. He came there with chest pain. She was about to be discharged home thinking that the pain was related to GERD. Apparently she went into a cardiac arrest and had to be coded for 14 minutes. The emergency cardiac catheterization revealed high-grade lesion in the maker of the heart. She underwent angioplasty and stent placement. According the patient, she never had any complete relief of pain since the coronary intervention. She has been having episodes of chest pains with no rhyme or reason. She may take 1 or 2 sublingual nitroglycerin and that may ease of the pain. Approximately 5 months ago, she had a repeat cardiac catheterization at the [facility] through the right groin. She was told that there were no new blockages. She had a 50% blockage in one of the other arteries which was left alone. She seems to have the same type of pain all the time. Prior to the coronary angiogram she had a Myocardial perfusion imaging?. The details of these are not available at this time. All these information are from the patient. She used to be admitted metastatic for 15 years or so. 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 Currently she smokes cigarettes half to 1 pack a day . No alcohol abuse or any other substance abuse. Review of Systems Narrative: CONSTITUTIONAL: No fever or chills. [] EYES: No blurring of vision or other visual disturbances lately. [] ENT: No hoarseness of voice, auditory disturbances or sore throat. [] CARDIOVASCULAR: As mentioned above. RESPIRATORY: No significant cough. She was having some shortness of breath with activities GASTROINTESTINAL: No hematemesis or melena. GENITOURINARY: No dysuria or hematuria. INTEGUMENTARY: No skin rashes or history of skin cancer. NEURO: No transient ischemic attacks or amaurosis. PSYCHIATRIC: No history of psychosis or major depression. HEMATOLOGIC: No bleeding disorders or significant anemia. ENDOCRINE: No history of polyuria or polydipsia. MUSCULOSKELETAL: No recent joint pain or swelling. ALLERGY/IMMUNOLOGY: As mentioned above. Medications/Allergies Home Medications Medication Instructions Recorded Confirmed Last Taken Type alprazolam 1 mg tablet 1 mg PO TID PRN Anxiety 06/20/22 07/12/22 07/11/22 History aripiprazole 5 mg tablet 5 mg PO DAILY 06/20/22 07/12/22 06/20/22 History aspirin 81 mg chewable tablet 81 mg PO DAILY 06/20/22 07/12/22 07/12/22 08:00 History atorvastatin 80 mg tablet 80 mg PO DAILY 06/20/22 07/12/22 07/11/22 History bupropion HCl 150 mg 24 hr tablet, 150 mg PO DAILY 06/20/22 07/12/22 06/19/22 History extended release furosemide 40 mg tablet 40 mg PO DAILY 06/20/22 07/12/22 07/12/22 History gabapentin 300 mg capsule 300 mg PO BID 06/20/22 07/12/22 07/11/22 History omeprazole 20 mg capsule,delayed 20 mg PO DAILY 06/20/22 07/12/22 07/12/22 History release prasugrel 10 mg tablet 10 mg PO DAILY 06/20/22 07/12/22 07/12/22 History quetiapine 100 mg tablet 100 mg PO BEDTIME 06/20/22 07/12/22 07/11/22 History quetiapine 50 mg tablet 50 mg PO DAILY 06/20/22 07/12/22 07/12/22 History trazodone 100 mg tablet 100 mg PO BEDTIME 06/20/22 07/12/22 07/11/22 History verapamil 120 mg tablet,extended 120 mg PO DAILY 06/20/22 07/12/22 07/12/22 History release Allergies Allergy/AdvReac Type Severity Reaction Status Date / Time Sulfa (Sulfonamide Allergy Unknown Unknown Verified 06/20/22 14:45 Antibiotics) Current Medications Generic Name Dose Route Start Last Admin Trade Name Freq PRN Reason Stop Dose Admin Alprazolam 1 mg 07/12/22 22:22 07/12/22 22:44 Alprazolam 0.5 Mg Tablet PO 1 mg TID PRN Administration Anxiety Fentanyl 50 mcg 07/12/22 20:09 07/12/22 20:17 Fentanyl 50 Mcg/Ml Inj 2ml IVP 50 mcg Q30M PRN Administration pain Heparin Sodium (Porcine) 0 unit 07/12/22 22:19 07/12/22 22:56 Heparin 5,000 Unit/Ml Inj 1 Ml IV 5,000 unit PRN PRN Administration Heparin weight-base protocol Protocol Hydromorphone HCl 0.5 mg 07/12/22 22:04 07/13/22 00:24 Hydromorphone 1 Mg/Ml Inj 1 Ml IVP 0.5 mg Q2H PRN Administration SEVERE PAIN Heparin Sodium/Sodium Chloride 25,000 unit in 500 mls @ 0 mls/hr 07/12/22 22:30 07/12/22 22:57 Heparin Drip IV 21 unit/kg/hr .Q0M MADDY 31.43 mls/hr Administration Protocol Per Protocol Nitroglycerin 0.4 mg 07/12/22 17:52 07/12/22 20:21 Nitroglycerin 0.4 Mg Sublingual Tablet SUBLINGUAL 0.4 mg Q5M PRN Administration CHEST PAIN Pantoprazole Sodium 40 mg 07/12/22 22:04 07/12/22 22:45 Pantoprazole 40 Mg Sdv IVP 40 mg Q24H MADDY Administration Quetiapine Fumarate 100 mg 07/12/22 22:30 07/12/22 22:45 Quetiapine 100 Mg Tablet PO 100 mg BEDTIME MADDY Administration Trazodone HCl 100 mg 07/12/22 22:30 07/12/22 22:45 Trazodone 100 Mg Tablet PO 100 mg BEDTIME MADDY Administration PFSH Acute PFSH: Medical History CAD (coronary artery disease) Frequent PVCs Surgical History History of percutaneous coronary intervention Social History Smoking and tobacco status: current every day smoker Female Reproductive History: Date of last menstrual period: 07/12/22 Vitals/I&O/Wt Last Vital Signs Temp 98.4 F 07/13/22 04:00 Pulse 79 07/13/22 05:43 Resp 12 07/13/22 04:00 BP 89/52 07/13/22 04:00 Pulse Ox 94 07/13/22 04:00 O2 Del Method 07/13/22 04:00 07/12/22 07/13/22 07/13/22 22:59 06:59 14:59 Intake Total 1500 / 1500 Output Total 200 / 200 400 / 600 Balance 1300 / 1300 -400 / 900 Weight last 48 hrs Weight 165 lb Physical Exam Narrative: GENERAL: The patient is alert and oriented times three. Not in any acute distress. HEENT: No significant pallor, icterus or lymphadenopathy.Oral cavity: There are no mucous membrane lesions. NECK: Trachea appears to be central. No masses noted. No JVD or thyromegaly appreciated. RESPIRATORY: Chest is symmetrical. No intercostals muscle retraction or any accessory muscle activation. There is no chest wall tenderness. Breath sounds are heard bilaterally. No rales or rhonchi heard. No evidence of any consolidation. BREASTS: Deferred. HEART: The heart sounds are normal. No S3 or S4. No significant murmurs. No pericardial rub ABDOMEN: No vessel pulsations or distention. No tenderness. No organomegaly appreciated. Bowel sounds are normally heard. : Deferred. RECTAL: Deferred. LYMPHATIC: No lymphadenopathy noted in the neck. EXTREMITIES: No edema or cyanosis. No clubbing. MUSCULOSKELETAL: No acute joint deformities or swelling SKIN: There are no significant rashes or ecchymosis NEUROPSYCHIATRIC: The patient is alert and oriented x3. Appears to be in a good mood. No tremors or rigidity noted. Data 07/13/22 04:27 07/13/22 04:27 Other Labs: Laboratory Last Values WBC 7.9 10^3/uL (4.0-10.0) 07/13/22 04:27 RBC 3.73 10^6/uL (4.1-5.3) L 07/13/22 04:27 Hgb 10.9 g/dL (11.5-15.3) L 07/13/22 04:27 Hct 34.7 % (37.0-47.0) L 07/13/22 04:27 MCV 93.0 fl (81-99) 07/13/22 04:27 MCH 29.2 pg (28.0-34.0) 07/13/22 04:27 MCHC 31.4 g/dL (30.0-36.0) 07/13/22 04:27 RDW 13.7 % (12.1-15.1) 07/13/22 04:27 Plt Count 169 10^3/cmm (130-400) 07/13/22 04:27 MPV 11.0 fL (7.4-10.4) H 07/13/22 04:27 Neut % (Auto) 40.3 % 07/13/22 04:27 Lymph % (Auto) 49.2 % 07/13/22 04:27 Bowie % (Auto) 6.2 % 07/13/22 04:27 Eos % (Auto) 3.8 % 07/13/22 04:27 Baso % (Auto) 0.4 % 07/13/22 04:27 Neut # (Auto) 3.19 10^3/uL (1.8-7.7) 07/13/22 04:27 Lymph # (Auto) 3.9 10^3/uL (0.8-4.8) 07/13/22 04:27 Bowie # (Auto) 0.5 10^3/uL (0.2-0.9) 07/13/22 04:27 Eos # (Auto) 0.3 10^3/uL (0.0-0.8) 07/13/22 04:27 Baso # (Auto) 0.0 10^3/uL (0.0-0.1) 07/13/22 04:27 Nucleated RBC % (auto) 0 % 07/13/22 04:27 Nucleated RBCs # 0.0 /100WBC 07/13/22 04:27 APTT 60.3 SECONDS (23.9-36.7) H 07/13/22 04:27 D-Dimer 0.45 ug/mIFEU (0-0.59) 07/12/22 17:15 Sodium 140 mmol/L (136-145) 07/13/22 04:27 Potassium 3.5 mmol/L (3.5-5.1) 07/13/22 04:27 Chloride 107 mmol/L (98-107) 07/13/22 04:27 Carbon Dioxide 26 mmol/L (22-29) 07/13/22 04:27 Anion Gap 10.5 (5-19) 07/13/22 04:27 BUN 6 mg/dL (6-20) 07/13/22 04:27 Creatinine 0.6 mg/dL (0.5-0.9) 07/13/22 04:27 GFR Calculation 113.1 mL/min (90-130) 07/13/22 04:27 Glucose 89 mg/dL (65-115) 07/13/22 04:27 Calculated Osmolality 287 mOsm/kg (285-295) 07/13/22 04:27 Calcium 7.6 mg/dL (8.5-10.5) L 07/13/22 04:27 Magnesium 2.1 mg/dL (1.7-2.3) 07/13/22 04:27 Total Bilirubin 0.2 mg/dL (0.15-1.2) 07/12/22 17:15 AST 10 U/L (0-32) 07/12/22 17:15 ALT 8 U/L (0-33) 07/12/22 17:15 Alkaline Phosphatase 114 U/L (35-105) H 07/12/22 17:15 Troponin T Baseline 6 ng/L (0-10) 07/12/22 17:15 Troponin T 120 Minute 6.00 ng/L (0-10) 07/12/22 18:44 Delta Troponin T 0 ABS# (0-10) 07/12/22 18:44 Troponin T Hi Sens 6Hr 6.00 ng/L (0-10) 07/12/22 23:37 Troponin T Hi Sens 6Hr Delta 0 ng/L (0-12) 07/12/22 23:37 Total Protein 8.0 g/dL (6.6-8.7) 07/12/22 17:15 Albumin 4.9 g/dL (3.5-5.2) 07/12/22 17:15 Globulin 3.1 g/dL (1.3-4.6) 07/12/22 17:15 Lipase 18 U/L (13-60) 07/12/22 16:38 HCG, Qual Cancelled 07/12/22 17:49 Urine Color Yellow (Yellow) 07/12/22 17:49 Urine Appearance Clear (CLEAR) 07/12/22 17:49 Urine pH 6 (5-7) 07/12/22 17:49 Ur Specific [place] 1.015 (1.005-1.030) 07/12/22 17:49 Urine Protein Neg (Negative) 07/12/22 17:49 Urine Glucose (UA) Norm (Normal) 07/12/22 17:49 Urine Ketones Negative (Negative) 07/12/22 17:49 Urine Blood Neg (Negative) 07/12/22 17:49 Urine Nitrate Negative (Negative) 07/12/22 17:49 Urine Bilirubin Neg (Negative) 07/12/22 17:49 Urine Urobilinogen 4 mg/dL (Negative) H 07/12/22 17:49 Ur Leukocyte Esterase Negative (Negative) 07/12/22 17:49 Urine Opiates Screen Negative ng/mL (Negative) 07/12/22 17:49 Ur Barbiturates Screen Negative ng/mL (Negative) 07/12/22 17:49 Ur Phencyclidine Scrn Negative ng/mL (Negative) 07/12/22 17:49 Ur Amphetamines Screen Negative ng/mL (Negative) 07/12/22 17:49 U Benzodiazepines Scrn Negative ng/mL (Negative) 07/12/22 17:49 Urine Cocaine Screen Negative ng/mL (Negative) 07/12/22 17:49 U Marijuana (THC) Screen Negative ng/mL (Negative) 07/12/22 17:49 CTA Chest: Radiologist's impression: 1. ? Mild atherosclerotic changes in the thoracic and abdominal aorta. No intramural hematoma, dissection or aneurysm. 2. ? Constipation. 3. ? No acute cardiopulmonary abnormality. CXR: My impression: Normal cardia silhouette with no lung infiltrates. No acute pathology noted. EKG 1: It Data Architect Interpretation: Normal sinus rhythm with a features right ventricular conduction delay. Nonspecific T wave changes in the inferolateral leads. Possible old inferior wall MS A&P Assessment and plan (1) Chest pain: The patient's prolonged episode of chest pain is somewhat atypical. Apparently she been having more of a similar type of pain ever since her myocardial infarction a year ago. According to her, the angiogram 5 months ago did not reveal any new changes. The quality of the pain is similar to what she had in the past. EKG changes are nonspecific. No evidence of myocardial injury. Hemodynamically she is stable. (2) History of cardiac arrest: Patient has not had any recurrence of cardiac arrest since the myocardial infarction. (3) History of MS (myocardial infarction): Her LV function is not known at this point. An echocardiogram would be helpful to evaluate LV function and rule out any other pathology. (4) History of coronary angioplasty: The details of the coronary intervention is not known. According to the patient, she had only 1 stent in the maker-left hydro descending artery. (5) Smoking addiction: She continues to smoke. Advised strongly to quit smoking (6) History of drug abuse: According the patient, she has not had any drug abuse for 12 years or so. Plan I would like to get the medical records from [facility]. For further evaluation of her symptoms, an echocardiogram would be helpful. Also may consider doing a myocardial perfusion imaging to further evaluate the pain. She has no evidence of any acute myocardial injury. Apparently her pain is more or less similar to what she been having for the last many months. I discussed my clinical impression and the management plan with the patient and her . The patient is wanting to go home and see her own striper machine in [place]. She seems to understand implications. Thank you for the opportunity to evaluate this patient and make these recommendations Consult Attestations Medical Necessity Statement: Disposition as per the primary Coding Level of Care Code 60725 Diagnoses Chest pain R07.9 History of cardiac arrest Z86.74 History of MS (myocardial infarction) I25.2 History of coronary angioplasty Z98.61 Smoking addiction F17.200 History of drug abuse F19.11
[2022-07-13 07:10] VITALS: BP 89/57; PULSE 87; RESP 16; O2SAT 97
--- NOTE | 2022-07-13 07:53 | PC.NURSE ---
this RN went into patients room to introduce myself. Patient requested pain medication. this RN requested to start new IV to be able to give pain medication. Patient is A & O x 4. patient agreed. While leaving this RN saw patient's SO walk in with fast food bags. I followed patient's SO into room and explained to patient that she is NPO and was unable to eat for possible tests today. Patient verbalized understanding. RN left to obtain IV supplies. Upon re-entering room MD Gus was leaving and patient admitted to eating hashbrown from fast food bag to MD. When told patient would have to wait for test patient stated she wanted to leave AMA. MD Peter was called and cleared her to leave. AMA paper work signed at [id number]. patient had no IV's in place while leaving. walked out with SO.
--- NOTE | 2022-07-13 08:07 | PM.DCS ---
Discharge Providers Date of Admission: 07/12/22 22:04 Date of Discharge: July 13, 2022 Attending Provider at Admission: Greg Restrepo Attending Provider at Discharge: Greg Restrepo Diagnoses at Discharge Discharge Diagnosis (1) History of cardiac arrest: Status: Acute (2) History of ID (myocardial infarction): Status: Acute (3) History of coronary angioplasty: Status: Acute (4) Smoking addiction: Status: Acute (5) History of drug abuse: Status: Acute Reason for Visit Reason for Visit: chest pain/down back Hospital Course Hospital Course 36-year-old lady with history of coronary disease, NSTEMI resulting in LAD stent about a year ago, on aspirin, prasugrel, smoking history, hypertension and very frequent PVCs, on verapamil, recently has also been having swelling in her legs for which she takes Lasix, reports also chronically soft blood pressure which she states does not come down further with pain medications, came in for evaluation to ER due to experiencing chest pain/pressure, radiating to the upper central back and nausea.? She feels it is very similar to her symptoms with prior heart attack. So far only partial improvement with nitroglycerin and fentanyl, then Dilaudid in ER.? At the moment states still pain 7/10.? States that fentanyl did not really work for her, requests for Dilaudid. First and 2-hour troponins normal in ER.? D-dimer unremarkable.? Chest x-ray with coronary artery disease, no acute pulmonary abnormality. -Patient left AGAINST MEDICAL ADVICE before she was seen by me -According to nursing staff she was upset because she was kept n.p.o., and she wanted to eat -She wanted higher doses of narcotic pain medications, and she wanted higher doses of benzodiazepines -I had nursing staff communicate with her mobility and mortality associated with leaving AGAINST MEDICAL ADVICE, according to nursing staff, she voiced understanding, all questions answered, left AGAINST MEDICAL ADVICE Discharge Data Studies Completed and Pending Completed Studies During Hospitalization Category Date Time Status CTA chest abdomen pelvis [CT ang ches abdpel 55029/ Cat Scan 07/12/22 21:15 Completed [id number]] Stat XR chest 1V portable [id number] Urgent Exams 07/12/22 16:38 Completed Pending at discharge Category Date Time Status Basic Metabolic Panel AM LABS Lab 07/14/22 04:00 Ordered Basic Metabolic Panel AM LABS Lab 07/15/22 04:00 Ordered Complete Blood Count w/Auto AM LABS Lab 07/14/22 04:00 Ordered Complete Blood Count w/Auto AM LABS Lab 07/15/22 04:00 Ordered Platelet Count Q2D Lab 07/14/22 04:00 Ordered Platelet Count Q2D Lab 07/16/22 04:00 Ordered CV. echo complete* [id number] Routine Ultrasound 07/13/22 22:04 Ordered Radiology Impressions Chest X-Ray 07/12/22 16:38 IMPRESSION: 1. No acute pulmonary abnormality. 2. Coronary artery disease. Chest/Abdomen/Pelvis CTA 07/12/22 21:15 IMPRESSION: 1. Mild atherosclerotic changes in the thoracic and abdominal aorta. No intramural hematoma, dissection or aneurysm. 2. Constipation. 3. No acute cardiopulmonary abnormality. Laboratory Results WBC 7.9 10^3/uL (4.0-10.0) 07/13/22 04:27 RBC 3.73 10^6/uL (4.1-5.3) L 07/13/22 04:27 Hgb 10.9 g/dL (11.5-15.3) L 07/13/22 04:27 Hct 34.7 % (37.0-47.0) L 07/13/22 04:27 MCV 93.0 fl (81-99) 07/13/22 04:27 MCH 29.2 pg (28.0-34.0) 07/13/22 04:27 MCHC 31.4 g/dL (30.0-36.0) 07/13/22 04:27 RDW 13.7 % (12.1-15.1) 07/13/22 04:27 Plt Count 169 10^3/cmm (130-400) 07/13/22 04:27 MPV 11.0 fL (7.4-10.4) H 07/13/22 04:27 Neut % (Auto) 40.3 % 07/13/22 04:27 Lymph % (Auto) 49.2 % 07/13/22 04:27 [place] % (Auto) 6.2 % 07/13/22 04:27 Eos % (Auto) 3.8 % 07/13/22 04:27 Baso % (Auto) 0.4 % 07/13/22 04:27 Neut # (Auto) 3.19 10^3/uL (1.8-7.7) 07/13/22 04:27 Lymph # (Auto) 3.9 10^3/uL (0.8-4.8) 07/13/22 04:27 [place] # (Auto) 0.5 10^3/uL (0.2-0.9) 07/13/22 04:27 Eos # (Auto) 0.3 10^3/uL (0.0-0.8) 07/13/22 04:27 Baso # (Auto) 0.0 10^3/uL (0.0-0.1) 07/13/22 04:27 Nucleated RBC % (auto) 0 % 07/13/22 04:27 Nucleated RBCs # 0.0 /100WBC 07/13/22 04:27 APTT 60.3 SECONDS (23.9-36.7) H 07/13/22 04:27 D-Dimer 0.45 ug/mIFEU (0-0.59) 07/12/22 17:15 Sodium 140 mmol/L (136-145) 07/13/22 04:27 Potassium 3.5 mmol/L (3.5-5.1) 07/13/22 04:27 Chloride 107 mmol/L (98-107) 07/13/22 04:27 Carbon Dioxide 26 mmol/L (22-29) 07/13/22 04:27 Anion Gap 10.5 (5-19) 07/13/22 04:27 BUN 6 mg/dL (6-20) 07/13/22 04:27 Creatinine 0.6 mg/dL (0.5-0.9) 07/13/22 04:27 GFR Calculation 113.1 mL/min (90-130) 07/13/22 04:27 Glucose 89 mg/dL (65-115) 07/13/22 04:27 Calculated Osmolality 287 mOsm/kg (285-295) 07/13/22 04:27 Calcium 7.6 mg/dL (8.5-10.5) L 07/13/22 04:27 Magnesium 2.1 mg/dL (1.7-2.3) 07/13/22 04:27 Total Bilirubin 0.2 mg/dL (0.15-1.2) 07/12/22 17:15 AST 10 U/L (0-32) 07/12/22 17:15 ALT 8 U/L (0-33) 07/12/22 17:15 Alkaline Phosphatase 114 U/L (35-105) H 07/12/22 17:15 Troponin T Baseline 6 ng/L (0-10) 07/12/22 17:15 Troponin T 120 Minute 6.00 ng/L (0-10) 07/12/22 18:44 Delta Troponin T 0 ABS# (0-10) 07/12/22 18:44 Troponin T Hi Sens 6Hr 6.00 ng/L (0-10) 07/12/22 23:37 Troponin T Hi Sens 6Hr Delta 0 ng/L (0-12) 07/12/22 23:37 Total Protein 8.0 g/dL (6.6-8.7) 07/12/22 17:15 Albumin 4.9 g/dL (3.5-5.2) 07/12/22 17:15 Globulin 3.1 g/dL (1.3-4.6) 07/12/22 17:15 Lipase 18 U/L (13-60) 07/12/22 16:38 HCG, Qual Cancelled 07/12/22 17:49 Urine Color Yellow (Yellow) 07/12/22 17:49 Urine Appearance Clear (CLEAR) 07/12/22 17:49 Urine pH 6 (5-7) 07/12/22 17:49 Ur Specific [place] 1.015 (1.005-1.030) 07/12/22 17:49 Urine Protein Neg (Negative) 07/12/22 17:49 Urine Glucose (UA) Norm (Normal) 07/12/22 17:49 Urine Ketones Negative (Negative) 07/12/22 17:49 Urine Blood Neg (Negative) 07/12/22 17:49 Urine Nitrate Negative (Negative) 07/12/22 17:49 Urine Bilirubin Neg (Negative) 07/12/22 17:49 Urine Urobilinogen 4 mg/dL (Negative) H 07/12/22 17:49 Ur Leukocyte Esterase Negative (Negative) 07/12/22 17:49 Urine Opiates Screen Negative ng/mL (Negative) 07/12/22 17:49 Ur Barbiturates Screen Negative ng/mL (Negative) 07/12/22 17:49 Ur Phencyclidine Scrn Negative ng/mL (Negative) 07/12/22 17:49 Ur Amphetamines Screen Negative ng/mL (Negative) 07/12/22 17:49 U Benzodiazepines Scrn Negative ng/mL (Negative) 07/12/22 17:49 Urine Cocaine Screen Negative ng/mL (Negative) 07/12/22 17:49 U Marijuana (THC) Screen Negative ng/mL (Negative) 07/12/22 17:49 Vitals Last Vital Signs Temp 98.4 F 07/13/22 04:00 Pulse 87 07/13/22 07:10 Resp 16 07/13/22 07:10 BP 89/57 07/13/22 07:10 Pulse Ox 97 07/13/22 07:10 O2 Del Method 07/13/22 07:10 Discharge Plan Discharge Patient Disposition: Left Against Medical Advice Condition: Stable Prescriptions: No Action verapamil 120 mg tablet extended release 120 mg PO DAILY furosemide 40 mg tablet 40 mg PO DAILY atorvastatin 80 mg tablet 80 mg PO DAILY alprazolam 1 mg tablet 1 mg PO TID PRN (Reason: Anxiety) quetiapine 100 mg tablet 100 mg PO BEDTIME trazodone 100 mg tablet 100 mg PO BEDTIME gabapentin 300 mg capsule 300 mg PO BID omeprazole 20 mg capsule,delayed release(DR/EC) 20 mg PO DAILY aripiprazole 5 mg tablet 5 mg PO DAILY bupropion HCl 150 mg tablet extended release 24 hr 150 mg PO DAILY quetiapine 50 mg tablet 50 mg PO DAILY prasugrel 10 mg tablet 10 mg PO DAILY aspirin 81 mg Tablet,Chewable 81 mg PO DAILY Discharge Attestations Time Spent in Discharge Care*: less than 30 min Quality Metrics Clinical Quality Measures [ No reported AMI, CVA or VTE this stay] Coding Level of Care Code Acute Code for Chg Fwd Diagnoses History of cardiac arrest Z86.74 History of ID (myocardial infarction) I25.2 History of coronary angioplasty Z98.61 Smoking addiction F17.200 History of drug abuse F19.11
== END 2022-07-13 07:45 | disposition left against medical advice (07) ==
LOC: ER 20:27 → CSU 20:55
PROVIDERS: Physician Assistant; Admitting Provider Internal Medicine; Emergency Provider Emergency Medicine; Visit Provider Internal Medicine
DX: R07.89 Other chest pain (principal); I25.10 Atherosclerotic heart disease of native coronary artery without angina pectoris; R60.0 Localized edema; Z53.21 Procedure and treatment not carried out due to patient leaving prior to being seen by health care provider; I25.2 Old myocardial infarction; Z98.61 Coronary angioplasty status; E87.6 Hypokalemia; I95.9 Hypotension, unspecified; Z86.74 Personal history of sudden cardiac arrest; F17.200 Nicotine dependence, unspecified, uncomplicated; F19.11 Other psychoactive substance abuse, in remission; Z79.82 Long term (current) use of aspirin; K59.00 Constipation, unspecified; I45.10 Unspecified right bundle-branch block
CPT/HCPCS: 36415; 71045; 71275; 74174; 80048; 80053; 80306; 81003; 83690; 83735; 84484; 84703; 85025; 85378; 85730; 93005; 96365; 96372; 96375; 96376; 99285; C9113; G0378; J1170; J1644; J2405; J2550; J2765; J3010; J7030; J7040; Q9967

== ENCOUNTER 2022-08-06 00:15 | Emergency (ER) | payer MEDICAID, SELFPAY ==
[2022-08-06] VITALS (8 sets, daily range): BP systolic 78–101; BP diastolic 45–67; PULSE 69–80; RESP 15–22; TEMP 36.7; O2SAT 91–99
--- NOTE | 2022-08-06 00:21 | ECG_ITS ---
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 Measurements Intervals [place] Rate: 81 P: 148 CO: 151 QRS: 98 QRSD: 112 T: 55 QT: 370 QTc: 431 Interpretive Statements ECTOPIC ATRIAL RHYTHM LEFT ATRIAL ENLARGEMENT [-0.15mV P-WAVE IN V1/V2] BORDERLINE RIGHT AXIS DEVIATION [QRS AXIS > 90] POSSIBLE RIGHT VENTRICULAR CONDUCTION DELAY [RSR (QR) IN V1/V2] Compared to ECG 07/12/2022 23:23:12 Ectopic atrial rhythm now present Atrial abnormality now present Sinus rhythm no longer present Myocardial infarct finding no longer present Electronically Signed On 08-06-2022 13:51:23 CDT by Juan Burk M.D. [id number]
--- NOTE | 2022-08-06 00:29 | W.ED.CHESTPA ---
HPI - Chest Pain General: Chief Complaint: Chest Pain Stated Complaint: cp Time Seen by Provider: 08/06/22 00:29 History of Present Illness: Ms. Moran is a 37-year-old lady with complex history including reported history of CAD with prior stent placement presenting to the emergency department for chest pain. She reports fairly frequent chest pain since time of stent placement however over the past few days has had more frequent and more intense substernal chest pain. This has become constant since increased social stressor that occurred involving her being brought to the emergency department. Does note some nausea and shortness of breath. Denies other infectious symptoms. No other specific changes in health, exacerbating, or alleviating factors identified. Onset (ago): day(s) Timing of current episode: episodic Prior episodes: Yes Onset: during exertion Pain location: substernal Severity: severe Quality: aching and heaviness Relieving factors: nothing Exacerbating factors: nothing Context: other Associated symptoms: Reports dyspnea and nausea Review of Systems General: Reports: 10 or more systems reviewed and unremarkable except in HPI and below Resp: Reports: dyspnea GI: Reports: nausea PFSH ED PFSH: Medical History CAD (coronary artery disease) Frequent PVCs Surgical History History of percutaneous coronary intervention Social History Smoking and tobacco status: current every day smoker Physical Exam Const: COMMON NORMALS: alert GENERAL APPEARANCE: cooperative and well developed HENMT: COMMON NORMALS: normocephalic and atraumatic HEAD & SCALP: normocephalic and atraumatic Eye: COMMON NORMALS: conjunctivae normal CONJUNCTIVA: Yes conjunctivae normal SCLERA: sclerae normal Neck/C-Spine: COMMON NORMALS: supple GENERAL: Yes trachea midline Resp: COMMON NORMALS: normal respiratory effort and clear to auscultation bilaterally EFFORT & INSPECTION: Yes able to speak in complete sentences AUSCULTATION: clear to auscultation bilaterally Cardio: COMMON NORMALS: regular rate and regular rhythm RATE: regular rate RHYTHM: regular rhythm GI: COMMON NORMALS: Soft to palpation PALPATION: Yes Soft to palpation and No Tenderness to palpation present (GI) Extremity: GENERAL: Yes normal exam except as noted and No edema Neuro: COMMON NORMALS: moves all extremities SENSORIUM/ORIENTATION: Yes alert and No Orientation impaired Psych: COMMON NORMALS: mental status grossly normal and Normal thought process present THOUGHT PROCESS: Normal thought process present Course Vital Signs: Vital signs: Vital Signs Temperature 98.0 F 08/06/22 00:18 Pulse Rate 69 08/06/22 04:32 Respiratory Rate 16 08/06/22 04:32 Blood Pressure 86/58 08/06/22 04:32 Pulse Oximetry 92 08/06/22 04:32 Oxygen Delivery Me thod Room Air 08/06/22 04:00 MDM - Chest Pain Medical Decision Making 37-year-old lady with cardiac history presenting due to chest pain. Episodic over the past few days however now constant in the context of stressors. Exam as above. EKG demonstrates atrial rhythm with normal axis and intervals, there are nonspecific ST segment abnormalities, no STEMI. Labs with mild leukocytosis, normal hemoglobin and platelet count. Metabolic panel with mild hypokalemia and minimally elevated creatinine above baseline. Negative range 2-hour delta troponin. hCG is negative. Urine drug screen positive for opiates, benzodiazepines, THC. Chest x-ray with no lobar consolidation or pneumothorax. During ED course patient treated with analgesia, aspirin, antiemetic, IV fluids, potassium/patient, and repaired over potentiation of analgesia. On reassessment she has improvement. Patient feels outside of clinical study valuations for risk of adverse cardiac events. I did recommend/offer admission to the patient for further cardiac testing however I also discussed her previous hospitalization where she left AMA. Patient does not want to be admitted and plans to follow-up in the outpatient setting. The results of ED evaluation were discussed with the patient including prescriptions and/or symptomatic cares (if applicable) including appropriate and responsible use, followup plan, and return precautions. The patient verbalized understanding and felt safe for discharge. Medical Records I reviewed the patient's medical records. Lab Data I reviewed the patient's lab results. 08/06/22 00:35 08/06/22 00:35 Radiology Impressions Chest X-Ray 08/06/22 00:39 IMPRESSION: No acute findings. Laboratory Results WBC 10.6 10^3/uL (4.0-10.0) H 08/06/22 00:35 RBC 4.35 10^6/uL (4.1-5.3) 08/06/22 00:35 Hgb 12.9 g/dL (11.5-15.3) 08/06/22 00:35 Hct 39.7 % (37.0-47.0) 08/06/22 00:35 MCV 91.3 fl (81-99) 08/06/22 00:35 MCH 29.7 pg (28.0-34.0) 08/06/22 00:35 MCHC 32.5 g/dL (30.0-36.0) 08/06/22 00:35 RDW 13.5 % (12.1-15.1) 08/06/22 00:35 Plt Count 210 10^3/cmm (130-400) 08/06/22 00:35 MPV 10.9 fL (7.4-10.4) H 08/06/22 00:35 Neut % (Auto) 55.6 % 08/06/22 00:35 Lymph % (Auto) 33.7 % 08/06/22 00:35 [place] % (Auto) 8.1 % 08/06/22 00:35 Eos % (Auto) 2.0 % 08/06/22 00:35 Baso % (Auto) 0.3 % 08/06/22 00:35 Neut # (Auto) 5.89 10^3/uL (1.8-7.7) 08/06/22 00:35 Lymph # (Auto) 3.6 10^3/uL (0.8-4.8) 08/06/22 00:35 [place] # (Auto) 0.9 10^3/uL (0.2-0.9) 08/06/22 00:35 Eos # (Auto) 0.2 10^3/uL (0.0-0.8) 08/06/22 00:35 Baso # (Auto) 0.0 10^3/uL (0.0-0.1) 08/06/22 00:35 Nucleated RBC % (auto) 0 % 08/06/22 00:35 Nucleated RBCs # 0.0 /100WBC 08/06/22 00:35 PT 14.20 SECONDS (12.1-14.9) 08/06/22 00:35 INR 1.07 (0.8-1.2) 08/06/22 00:35 APTT 25.7 SECONDS (23.9-36.7) 08/06/22 00:35 D-Dimer 0.51 ug/mIFEU (0-0.59) 08/06/22 00:35 Sodium 139 mmol/L (136-145) 08/06/22 00:35 Potassium 3.2 mmol/L (3.5-5.1) L 08/06/22 00:35 Chloride 99 mmol/L (98-107) 08/06/22 00:35 Carbon Dioxide 30 mmol/L (22-29) H 08/06/22 00:35 Anion Gap 13.2 (5-19) 08/06/22 00:35 BUN 14 mg/dL (6-20) 08/06/22 00:35 Creatinine 1.0 mg/dL (0.5-0.9) H 08/06/22 00:35 GFR Calculation 62.4 mL/min (90-130) L 08/06/22 00:35 Glucose 74 mg/dL (65-115) 08/06/22 00:35 Calculated Osmolality 287 mOsm/kg (285-295) 08/06/22 00:35 Calcium 9.0 mg/dL (8.5-10.5) 08/06/22 00:35 Total Bilirubin 0.4 mg/dL (0.15-1.2) 08/06/22 00:35 AST 9 U/L (0-32) 08/06/22 00:35 ALT 7 U/L (0-33) 08/06/22 00:35 Alkaline Phosphatase 87 U/L (35-105) 08/06/22 00:35 Troponin T Baseline 6 ng/L (0-10) 08/06/22 00:35 Troponin T 120 Minute 6.15 ng/L (0-10) 08/06/22 02:33 Delta Troponin T 0.15 ABS# (0-10) 08/06/22 02:33 NT-Pro-B Natriuret Pep 86 pg/mL (0-125) 08/06/22 00:35 Total Protein 7.4 g/dL (6.6-8.7) 08/06/22 00:35 Albumin 4.3 g/dL (3.5-5.2) 08/06/22 00:35 Globulin 3.1 g/dL (1.3-4.6) 08/06/22 00:35 Lipase 19 U/L (13-60) 08/06/22 00:35 HCG, Qual Negative (Negative) 08/06/22 03:15 Urine Opiates Screen Positive ng/mL (Negative) H 08/06/22 03:15 Ur Barbiturates Screen Negative ng/mL (Negative) 08/06/22 03:15 Ur Phencyclidine Scrn Negative ng/mL (Negative) 08/06/22 03:15 Ur Amphetamines Screen Negative ng/mL (Negative) 08/06/22 03:15 U Benzodiazepines Scrn Positive ng/mL (Negative) H 08/06/22 03:15 Urine Cocaine Screen Negative ng/mL (Negative) 08/06/22 03:15 U Marijuana (THC) Screen Positive ng/mL (Negative) H 08/06/22 03:15 Discharge Plan Discharge Patient Disposition: Home Clinical Impression: Chest pain Condition: Stable Prescriptions: No Action verapamil 120 mg tablet extended release 120 mg PO DAILY furosemide 40 mg tablet 40 mg PO DAILY atorvastatin 80 mg tablet 80 mg PO DAILY alprazolam 1 mg tablet 1 mg PO TID PRN (Reason: Anxiety) quetiapine 100 mg tablet 100 mg PO BEDTIME trazodone 100 mg tablet 100 mg PO BEDTIME gabapentin 300 mg capsule 300 mg PO BID omeprazole 20 mg capsule,delayed release(DR/EC) 20 mg PO DAILY aripiprazole 5 mg tablet 5 mg PO DAILY bupropion HCl 150 mg tablet extended release 24 hr 150 mg PO DAILY quetiapine 50 mg tablet 50 mg PO DAILY prasugrel 10 mg tablet 10 mg PO DAILY aspirin 81 mg Tablet,Chewable 81 mg PO DAILY Discharge Orders: Discharge ED (Routine); Ordered 08/06/22 Ordered By: Eamon Salinas Referrals: Conner Nunez PA [Primary Care Provider] - Discharge Diet: Usual diet Discharge Activity: Resume usual activity Patient Instructions: Chest Pain (ED), Dehydration (ED), Hypokalemia (ED), Opioid Safety Activity Restrictions/Additional Instructions: Thank you for visiting the emergency department. You were seen and evaluated for chest pain. The exact cause of your chest pain is unclear. As discussed you are not low risk for major adverse cardiac events. I offered admission which you declined at this time. I will message case management for further outpatient cardiac testing. Please follow-up with your rn neurology and primary care provider. Return to the emergency department for anything that you are concerned about and feel needs emergency department evaluation. Coding Level of Care Code ED Sustainability Coach for Unruly Maurice
--- NOTE | 2022-08-06 00:39 | XRR_ITS ---
PROCEDURE INFORMATION: Exam: XR Chest Exam date and time: 08/06/2022 12:54 AM Age: 37 years old Clinical indication: Chest pressure; Prior surgery; Surgery type: Coronary stnet; Patient HX: C/O chest pain. ; Additional info: Cp TECHNIQUE: Imaging protocol: Radiologic exam of the chest. Views: 1 view. COMPARISON: CR XR chest 1V portable [id number] 07/12/2022 4:49 PM FINDINGS: Lungs: Unremarkable. No consolidation. Pleural spaces: Unremarkable. No pleural effusion. No pneumothorax. Heart/Mediastinum: Unremarkable. No cardiomegaly. Bones/joints: Unremarkable. XR/XR chest 1V portable [id number] IMPRESSION: No acute findings.
[2022-08-06] MEDS: morphine 4 mg/mL SDV 1 mL IVP (00:46)
[2022-08-06] MEDS: aspirin 81 mg Chew Tablet 324 MG PO (00:46)
[2022-08-06] MEDS: sodium chloride 0.9% 500 ML 999 ML IV (00:47)
[2022-08-06] MEDS: promethazine 25 mg/mL SDV 1 mL 12.5 MG IM (00:47)
[2022-08-06 00:49] LABS: Basophils % 0.3 %; Eosinophils # 0.2 10^3/uL (0.0-0.8); Hematocrit 39.7 % (37.0-47.0); Hemoglobin 12.9 g/dL (11.5-15.3); Lymphocytes # 3.6 10^3/uL (0.8-4.8); Lymphocytes % 33.7 %; Mean Corpuscular HGB Conc 32.5 g/dL (30.0-36.0); Mean Corpuscular Hemoglobin 29.7 pg (28.0-34.0); Mean Corpuscular Volume 91.3 fl (81-99); Mean Platelet Volume 10.9 fL (7.4-10.4); Monocytes # 0.9 10^3/uL (0.2-0.9); Monocytes % 8.1 %; Neutrophils # 5.89 10^3/uL (1.8-7.7); Neutrophils % 55.6 %; Nucleated Red Blood Cells % 0 %; Platelet Count 210 10^3/cmm (130-400); Red Blood Count 4.35 10^6/uL (4.1-5.3); Red Cell Distribution Width 13.5 % (12.1-15.1); White Blood Count 10.6 10^3/uL (4.0-10.0)
[2022-08-06 01:02] LABS: INR 1.07 (0.8-1.2); Partial Thromboplastin Time 25.7 SECONDS (23.9-36.7)
[2022-08-06 01:06] LABS: D Dimer 0.51 ug/mIFEU (0-0.59)
[2022-08-06 01:07] LABS: Troponin(5th) Baseline 6 ng/L (0-10)
[2022-08-06] MEDS: fentaNYL 50 mcg/mL INJ 2mL IVP (01:10)
[2022-08-06 01:14] LABS: Alanine Aminotransferase 7 U/L (0-33); Albumin Level 4.3 g/dL (3.5-5.2); Alkaline Phosphatase 87 U/L (35-105); Anion Gap 13.2 (5-19); Aspartate Amino Transferase 9 U/L (0-32); Blood Urea Nitrogen 14 mg/dL (6-20); Carbon Dioxide 30 mmol/L (22-29); Chloride 99 mmol/L (98-107); Globulin 3.1 g/dL (1.3-4.6); Glomerular Filtration Rate 62.4 mL/min (90-130); Glucose 74 mg/dL (65-115); Lipase 19 U/L (13-60); NT Pro B Type Natriuretic Pept 86 pg/mL (0-125); Osmolality Calculated 287 mOsm/kg (285-295); Potassium 3.2 mmol/L (3.5-5.1); Sodium 139 mmol/L (136-145); Total Bilirubin 0.4 mg/dL (0.15-1.2); Total Protein 7.4 g/dL (6.6-8.7)
[2022-08-06] MEDS: potassium chloride oral liq 20 mEq/15 mL UDC 40 MEQ PO (02:29)
[2022-08-06] MEDS: lidocaine 2% viscous 15 ML, aluminum-mag hydrox-simethicon 30 ML, sucralfate oral liq 1 GM PO (02:30)
--- NOTE | 2022-08-06 02:41 | ECG_ITS ---
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 Measurements Intervals [place] Rate: 67 P: 0 OK: 0 QRS: 42 QRSD: 117 T: 60 QT: 433 QTc: 460 Interpretive Statements ATRIAL FLUTTER POSSIBLE LATERAL MYOCARDIAL INFARCTION , OF INDETERMINATE AGE [30 ms Q WAVE IN I/aVL/V5/V6] Compared to ECG 08/06/2022 00:21:11 Myocardial infarct finding now present Ectopic atrial rhythm no longer present Atrial abnormality no longer present Electronically Signed On 08-06-2022 13:54:10 CDT by Juan Burk M.D. [id number]
[2022-08-06] MEDS: haloperidol inj 5 mg/mL INJ 1 mL 1 MG IVP (02:55)
[2022-08-06 02:59] LABS: Troponin 5 2HR 6.15 ng/L (0-10)
[2022-08-06 03:01] LABS: Troponin 5 2HR Delta 0.15 ABS# (0-10)
[2022-08-06 03:32] LABS: HCG Qualitative Urine. Negative (Negative)
[2022-08-06 03:39] LABS: Amphetamines Screen Urine Negative (Negative); Barbiturates Screen Urine Negative (Negative); Benzodiazepines Screen Urine Positive (Negative); Cocaine Screen Urine Negative (Negative); Opiate Screen Urine Positive (Negative); PCP Screen Urine Negative (Negative); THC Screen Urine Positive (Negative)
--- NOTE | 2022-08-06 10:10 | DCPLANNER ---
Addendum entered by Jeanine Mace 09/07/22 14:17: Patient had an outpatient stress test and echo scheduled - patient did not attend appointment. Addendum entered by Jeanine Mace 08/26/22 09:28: Patient has an outpatient echo scheduled for Tuesday, September 06, 2022 at 12:15. Addendum entered by Jeanine Mace 08/10/22 11:47: Patient has an outpatient stress test scheduled for Saturday, September 03, 2022 at 9:45. Original Note: manager social work had message to schedule an outpatient stress test and echo cardiogram for patient. manager social work faxed signed order to centralized scheduling, who will call patient with appointment information.
== END 2022-08-06 04:44 | disposition home or self-care (01) ==
PROVIDERS: Emergency Provider Emergency Medicine; PCP Physician Assistant Medical
DX: R07.9 Chest pain, unspecified (principal); Z79.82 Long term (current) use of aspirin; I25.10 Atherosclerotic heart disease of native coronary artery without angina pectoris; F17.210 Nicotine dependence, cigarettes, uncomplicated
CPT/HCPCS: 71045; 80053; 80306; 81025; 83690; 83880; 84484; 85025; 85378; 85610; 85730; 93005; 96361; 96372; 96374; 96375; 99285; J1630; J2270; J2550; J3010; J7040

== ENCOUNTER 2022-10-05 19:34 | Emergency (ER) | payer MEDICAID, SELFPAY ==
[2022-10-05 19:41] VITALS: BP 84/54; PULSE 100; RESP 16; TEMP 36.8; O2SAT 98; BMI 22.0
--- NOTE | 2022-10-05 19:41 | ECG_ITS ---
[facility] Test Date: 2022-10-05 Pat Name: Alyssa Moran Department: Room: Gender: Female Manager Product Management: : 1985 Requested By: Yuan Johnson Order Number: [id number] Patricia MD: Juan Burk M.D. Measurements Intervals [place] Rate: 62 P: 69 MD: 146 QRS: 55 QRSD: 100 T: 33 QT: 428 QTc: 436 Interpretive Statements SINUS RHYTHM POSSIBLE RIGHT VENTRICULAR CONDUCTION DELAY [RSR (QR) IN V1/V2] Compared to ECG 08/06/2022 02:41:05 Atrial flutter no longer present Myocardial infarct finding no longer present Electronically Signed On 10-06-2022 13:54:31 CDT by Juan Burk M.D. [id number]
--- NOTE | 2022-10-05 19:41 | XRR_ITS ---
PROCEDURE INFORMATION: Exam: XR Chest Exam date and time: 10/05/2022 7:54 PM Age: 37 years old Clinical indication: Pain; Chest pressure; Additional info: Cp, HX of heart attack 1 year ago, stents TECHNIQUE: Imaging protocol: Radiologic exam of the chest. Views: 1 view. COMPARISON: CR XR chest 1V portable [id number] 08/06/2022 12:54 AM FINDINGS: Lungs: Unremarkable. No consolidation. Pleural spaces: Unremarkable. No pleural effusion. No pneumothorax. Heart/Mediastinum: Unremarkable. No cardiomegaly. Coronary artery stent Bones/joints: Unremarkable. XR/XR chest 1V portable [id number] IMPRESSION: No acute findings.
[2022-10-05 20:30] LABS: Basophils % 0.4 %; Eosinophils # 0.2 10^3/uL (0.0-0.8); Hemoglobin 11.4 g/dL (11.5-15.3); Lymphocytes # 4.2 10^3/uL (0.8-4.8); Lymphocytes % 52.9 %; Mean Corpuscular HGB Conc 31.7 g/dL (30.0-36.0); Mean Corpuscular Hemoglobin 29.2 pg (28.0-34.0); Mean Corpuscular Volume 92.3 fl (81-99); Mean Platelet Volume 10.8 fL (7.4-10.4); Monocytes # 0.4 10^3/uL (0.2-0.9); Monocytes % 4.9 %; Neutrophils # 3.04 10^3/uL (1.8-7.7); Neutrophils % 38.7 %; Nucleated Red Blood Cells % 0 %; Platelet Count 251 10^3/cmm (130-400); Red Cell Distribution Width 13.5 % (12.1-15.1); White Blood Count 7.9 10^3/uL (4.0-10.0)
[2022-10-05 20:37] LABS: HCG, Serum Qual Negative (Negative)
[2022-10-05 20:43] LABS: Troponin(5th) Baseline 6 ng/L (0-10)
[2022-10-05 20:46] LABS: Alanine Aminotransferase < 5 U/L (0-33); Albumin Level 4.2 g/dL (3.5-5.2); Alkaline Phosphatase 82 U/L (35-105); Anion Gap 12.4 (5-19); Aspartate Amino Transferase 8 U/L (0-32); Blood Urea Nitrogen 7 mg/dL (6-20); Calcium 8.3 mg/dL (8.5-10.5); Carbon Dioxide 30 mmol/L (22-29); Chloride 102 mmol/L (98-107); Creatinine Clr Calc Pharmacy 112.3009; Globulin 2.4 g/dL (1.3-4.6); Glomerular Filtration Rate 94.2 mL/min (90-130); Glucose 76 mg/dL (65-115); Lipase 18 U/L (13-60); Osmolality Calculated 289 mOsm/kg (285-295); Potassium 3.4 mmol/L (3.5-5.1); Sodium 141 mmol/L (136-145); Total Bilirubin 0.2 mg/dL (0.15-1.2); Total Protein 6.6 g/dL (6.6-8.7)
--- NOTE | 2022-10-08 12:44 | DCPLANNER ---
flight reservations manager was triggered to call patient to due to no primary care physician - patient does not live in the area.
== END 2022-10-05 20:27 | disposition left against medical advice (07) ==
PROVIDERS: Emergency Medicine; Emergency Provider Family Medicine
DX: Z53.21 Procedure and treatment not carried out due to patient leaving prior to being seen by health care provider (principal)
CPT/HCPCS: 36415; 71045; 80053; 83690; 84484; 84703; 85025; 93005; 99285